=== PATIENT | female | born 1965 | race Caucasian/White ===

== ENCOUNTER → 2019-05-24 | Outpatient (CLI) | payer OTHER | LOC: M.CT 15:56 | DX: R91.8 Other nonspecific abnormal finding of lung field (principal); K76.0 Fatty (change of) liver, not elsewhere classified ==

== ENCOUNTER → 2021-05-20 | Outpatient (CLI) | payer OTHER ==
--- NOTE | 2021-05-20 13:29 | 2DMMODE ---
[place] [address] 2 D/M-MODE ECHOCARDIOGRAM Name: VICTORINO KANG ROSSANA Room: [facility]#: [id number] Admission: 05/20/21 Attend Phys: Jose Angel Cruz Discharge: Date of : 61 Date of Service: 05/20/21 1329 Report #: [id number] THIS REPORT FOR: cc: Anaid jA Linda J. DO Liston, Michael J. MD [facility] ~ APPROVED REPORT Study performed: 05/20/2021 09:20:46 EXAM: Comprehensive 2D, Doppler, and color-flow Echocardiogram Patient Location: Out-Patient BSA: 2.08 HR: 68 bpm BP: 140/80 mmHg Other Information Study Quality: Good Indications Murmur Hypertension/HDD 2D Dimensions IVSd: 10.64 (7-11mm) LVOT Diam: 20.08 (18-24mm) LVDd: 47.27 mm PWd: 11.29 (7-11mm) Ascending Ao: 26.63 (22-36mm) LVDs: 27.51 (25-40mm) Aortic Root: 29.12 mm Volumes Left Atrial Volume (Systole) LA ESV Index: 19.20 mL/m2 Aortic Valve AoV Peak Regis.: 1.52 m/s AO Peak Gr.: 9.30 mmHg LVOT Max P.00 mmHg AO Mean Gr.: 4.73 mmHg LVOT Mean P.43 mmHg LVOT Max V: 1.12 m/s AO V2 VTI: 31.35 cm LVOT Mean V: 0.72 m/s STERLING (VTI): 2.50 cm2 LVOT V1 VTI: 24.73 [place] [address] 2 D/M-MODE ECHOCARDIOGRAM Name: VICTORINO KANG Room: [facility]#: [id number] Admission: 05/20/21 Attend Phys: Jose Angel Cruz Discharge: Date of : 61 Date of Service: 05/20/21 1329 Report #: [id number] E/A Ratio: 0.84 MV Decel. Time: 219.63 ms MV E Max Regis.: 0.73 m/s MV PHT: 63.69 ms MVA (PHT): 3.45 cm2 TDI E/Lateral E': 12.17 E/Medial E': 9.13 Medial E' Regis.: 0.08 m/s Lateral E' Regis.: 0.06 m/s Pulmonary Valve PV Peak Regis.: 1.06 m/s PV Peak Gr.: 4.50 mmHg Left Ventricle The left ventricle is normal size. There is normal LV segmental wall motion. There is normal left ventricular wall thickness. Left ventricular systolic function is normal. LVEF is 60-65%. Grade I - abnormal relaxation pattern. Right Ventricle The right ventricle is normal size. The right ventricular systolic function is normal. Atria The left atrium size is normal. The right atrium size is normal. Aortic Valve Mild aortic valve sclerosis. No aortic regurgitation is present. There is no aortic valvular stenosis. Mitral Valve Mild mitral annular calcification. There is no mitral valve regurgitation noted. No evidence of mitral valve stenosis. Tricuspid Valve The tricuspid valve is normal in structure. There is no tricuspid valve regurgitation noted. Pulmonic Valve The pulmonary valve is normal in structure. There is no pulmonic valvular regurgitation. Great Vessels The aortic root is normal in size. IVC is [place] [address] 2 D/M-MODE ECHOCARDIOGRAM Name: VICTORINO KANG Room: [facility]#: [id number] Admission: 05/20/21 Attend Phys: Jose Angel Cruz Discharge: Date of : 61 Date of Service: 05/20/21 1329 Report #: [id number] collapses >50% with inspiration. Pericardium There is no pericardial effusion. <Conclusion> The left ventricle is normal size. There is normal left ventricular wall thickness. Left ventricular systolic function is normal. LVEF is 60-65%. Grade I - abnormal relaxation pattern. Mild aortic valve sclerosis. Mild mitral annular calcification. IVC is normal in size and collapses >50% with inspiration. <ELECTRONICALLY SIGNED> By: Jorge Painting MD, FACC 05/20/21 1329 28 28 Jorge Painting MD, FACC /INF
== END ==
LOC: M.CRD 04-30 09:00
PROVIDERS: ATTEND Specialist
DX: I08.0 Rheumatic disorders of both mitral and aortic valves (principal); I10 Essential (primary) hypertension; E10.69 Type 1 diabetes mellitus with other specified complication; R01.1 Cardiac murmur, unspecified